=== PATIENT | female | born 1955 | race Caucasian/White ===

== ENCOUNTER 2018-07-25 16:08 | Emergency (ER) | payer OTHER ==
--- NOTE | 2018-07-25 16:49 | PDOC ---
History of Present Illness - General Stated Complaint: CHEST PAIN Time Seen by Provider: 07/25/18 16:49 History Source: Patient Exam Limitations: No Limitations - History of Present Illness Initial Comments: Pt is a 62 yo F, with PMH of cholecystectomy, post ERCP pancreatitis (March 2018), and asthma (controlled with symbicort), who is presenting with complaints of chest pressure that radiates to her back. Pt states the pressure sensation started shortly before presentation, and was constant, lasting for about 30 minutes. The pt was taking a nap for about 5 minutes, when the pain awoke her from sleep (non-exertional pain) and she felt her "heart racing". The pt took an aspirin, but the pain did not improve. It was not associated with diaphoresis, nausea, or vomiting. The pt traveled from [place] just 1 week ago, and had recent surgery and extended hospitalization in [place] (ERCP with post- ERCP pancreatitis 2/2 to CBD dilation, and cholecystectomy). Pt denies any fevers/chills, headache, vision changes, syncope, SOB, nausea/vomiting, abdominal pain, urinary symptoms, diarrhea/constipation, or leg swelling. Social: Pt smoked 2 ppd prior to her procedure in March. Denies any alcohol or drug use. Pt flew on a plane from [place] 1 week ago. Denies sick contacts. Surgical: ERCP, cholecystectomy. Family: no relevant history. 07/25/18 20:08 Past History - Travel Traveled outside of the country in the last 30 days: Yes If so, where?: [place] Close contact w/someone who was outside of country & ill: No - Past Medical History Allergies/Adverse Reactions: Allergies Allergy/AdvReac Type Severity Reaction Status Date / Time Penicillins Allergy Severe Difficulty Verified 07/25/18 17:38 Breathing Home Medications: Ambulatory Orders Budesonide/Formeterol Fumarate [SYMBICORT 160/4.5mcg -] 1 inh PO DAILY 07/25/18 Asthma: Yes Cardiac Disorders: No Hx Myocardial Infarction: No DVT: No GI Disorders: Yes HTN: No Hypercholesterolemia: No - Surgical History Abdominal Surgery: Yes (bebeto, ERCP) Cholecystectomy: Yes Review of Systems - Review of Systems Able to Perform ROS?: Yes Is the patient limited Urdu proficient: No Constitutional: Yes: Weight Stable. No: Chills, Diaphoresis, Fever, Loss of Appetite, Malaise, Weakness HEENTM: No: Blurred Vision, Double Vision, Nose Congestion, Throat Pain Respiratory: No: Cough, Orthopnea, Shortness of Breath, Wheezing Cardiac (ROS): Yes: Palpitations, Chest Tightness. No: Chest Pain, Edema, Irregular Heart Rate, Lightheadedness, Syncope ABD/GI: Yes: See HPI (Recent pancreatitis with "fluid in the abdomen and chest" , recent hospitalization, see HPI). No: Constipated, Diarrhea, Nausea, Poor Appetite, Poor Fluid Intake, Vomiting, Abdominal cramping : No: Burning, Dysuria, Frequency, Flank Pain, Pain Musculoskeletal: No: Back Pain, Joint Pain, Muscle Weakness Integumentary: No: Rash, Sweating Neurological: No: Headache, Numbness, Paresthesia, Weakness, Unsteady Gait, Ataxia, Dizziness Psychiatric: No: Sleep Pattern Change, Change in Appetite Endocrine: No: Increased Urine, Change in Weight Hematologic/Lymphatic: No: Anemia, Blood Clots, Easy Bleeding, Easy Bruising All Other Systems: Reviewed and Negative *Physical Exam - Vital Signs 07/25/18 19:51 Vital Signs Temp Pulse Resp BP Pulse Ox 97.9 F 83 18 132/68 100 07/25/18 16:50 07/25/18 16:50 07/25/18 16:50 07/25/18 16:50 07/25/18 16:50 - Physical Exam Comments: Vitals stable, pt afebrile, O2 100% on RA. Pt in NAD, normal body habitus. PE showed pt alert and oriented. librarian assistant generally intact, muscular strength and sensation intact. Oropharynx without erythema or exudates. No nasal congestion, hearing intact. Clear heart sounds, S1/S2, no JVD, b/l pedal edema, or heart murmur. Clear lung sounds, no respiratory distress, wheezes, crackles, accessory muscle use, or respiratory distress. No abdominal or CVA tenderness to palpation, no rebound, no guarding. Abdomen soft, non-distended, and with normoactive bowel sounds. Skin without jaundice or rash. 07/25/18 20:15 ED Treatment Course - LABORATORY CBC & Chemistry Diagram: 07/25/18 18:00 07/25/18 19:07 Medical Decision Making - Medical Decision Making Pt was seen at bedside, also will be seen by attending Dr. Nassef. Pt presenting with complaints of chest pressure that radiates to her back. Pt states the pressure sensation started shortly before presentation, and was constant, lasting for about 30 minutes. The pt was taking a nap for about 5 minutes, when the pain awoke her from sleep (non-exertional pain) and she felt her "heart racing". The pt took an aspirin, but the pain did not improve. It was not associated with diaphoresis, nausea, or vomiting. Pt denies any current symptoms at time of presentation. The pt traveled from [place] just 1 week ago, and had recent surgery and extended hospitalization in [place] (ERCP with post- ERCP pancreatitis 2/2 to CBD dilation, and cholecystectomy). Pt denies any fevers/chills, headache, vision changes, syncope, SOB, nausea/vomiting, abdominal pain, urinary symptoms, diarrhea/constipation, or leg swelling. Vitals stable, pt afebrile, O2 100% on RA. Pt in NAD, normal body habitus. PE showed pt alert and oriented. librarian assistant generally intact, muscular strength and sensation intact. Oropharynx without erythema or exudates. No nasal congestion, hearing intact. Clear heart sounds, S1/S2, no JVD, b/l pedal edema, or heart murmur. Clear lung sounds, no respiratory distress, wheezes, crackles, accessory muscle use, or respiratory distress. No abdominal or CVA tenderness to palpation, no rebound, no guarding. Abdomen soft, non-distended, and with normoactive bowel sounds. Skin without jaundice or rash. Considering PE vs dissection vs retained stone in CBD vs ACS vs pancreatitis. Due to recent travel, recent surgery, and chest pressure, pt is considered high risk and we will progress to CTA instead of D-dimer to r/o PE. Ordered work-up including CBC, CMP, PT/INR, cardiac profile, type & screen, ECG , UA, urine culture, and chest CTA. Attempted to provide tylenol for pain - pt refused as she denies active chest pain at this time. Will continue to reassess pt and monitor for symptomatic improvement. ECG: HR 86, NSR, intervals WNL. No TWIs or significant ST segment changes. 07/25/18 18:42 Lab hemolyzed all samples. Will need to be re-drawn to send to lab. 07/25/18 18:54 Labs were re-sent. Pending labs and CTA. Pt signed out to next resident team. Explained presentation, ED course, any pending results, and needed interventions to resident Dr. Allen. 07/25/18 19:47 *DC/Admit/Observation/Transfer Diagnosis at time of Disposition: Chest pain Qualifiers: Chest pain type: unspecified Qualified Code(s): R07.9 - Chest pain, unspecified - Referrals Referrals: Cecil Mejia MD [Staff Physician] - Evangelina Rutherford MD [Primary Care Provider] - - Patient Instructions Printed Discharge Instructions: DI for Atypical Chest Pain, DI for Chest Pain Additional Instructions: you were seen for your chest pain. both blood values for your heart were negative for heart attack. please follow up with your primary medical doctor within 2-3 days after discharge for follow up care and management. Follow up with the cardiology referred to you, Dr. Mejia, within 3 days after discharge for follow up care and management. Please return to the emergency department if you have worsening symptoms or new concerning symptoms such as new quality chest pain, shortness of breath, and nausea and vomiting with chest pain. please follow up with Dr. Rutherford concerning the nodules seen on the chest CT. these nodules need to be reassessed in [address] thank you. thank you. - Post Discharge Activity
[2018-07-25] MEDS ORDERED: ACETAMINOPHEN 1000 MG/100 ML VIAL (NON FORMULARY) IVPB ONE (17:33)
[2018-07-25 17:37] VITALS: BMI 28.3
[2018-07-25 18:41] LABS: BASO % 0.9 % (0-2.0); EOS % 2.2 % (0-4.5); HEMATOCRIT 38.7 % (32.4-45.2); HEMOGLOBIN 13.6 GM/dL (10.7-15.3); LYMPH % 40.8 % (8-40); MCH 32.4 pg (25.7-33.7); MCHC 35.2 g/dl (32.0-36.0); MEAN CELL VOLUME 91.9 fl (80-96); MEAN PLT VOLUME 9.6 fl (7.5-11.1); MONO % 14.9 % (3.8-10.2); NEUT % 41.2 % (42.8-82.8); PLATELET COUNT 139 K/MM3 (134-434); RBC 4.21 M/mm3 (3.60-5.2); RDW 15.6 % (11.6-15.6); WHITE BLOOD COUNT 5.3 K/mm3 (4.0-10.0)
[2018-07-25 18:59] LABS: URINE APPEARANCE CLEAR; URINE BILIRUBIN NEGATIVE (<2.0 mg/dL); URINE COLOR LTYELLOW; URINE GLUCOSE (UA) NEGATIVE (NEGATIVE); URINE KETONE NEGATIVE (NEGATIVE); URINE LEUK ESTERASE NEGATIVE (NEGATIVE); URINE NITRITE NEGATIVE (NEGATIVE); URINE PROTEIN NEGATIVE (NEGATIVE); URINE UROBILINOGEN NEGATIVE mg/dL (0.2-1.0)
--- NOTE | 2018-07-25 19:04 | PDOC ---
Attending Attestation - Resident Resident Name: Emily Alcala - ED Attending Attestation I have performed the following: I have examined & evaluated the patient, The case was reviewed & discussed with the resident, I agree w/resident's findings & plan, Exceptions are as noted - HPI HPI: 07/25/18 19:52 The patient is a 62 year old female, with a significant past medical history of Asthma (well controlled), and Pneumonia who presents to the emergency department today complaining of chest pain The patient reports going to [place] and having her gallbladder removed (Mar 2018) and returning from [place] 1 week ago. Patient notes midsternal chest pressure radiating to the back and her heart was going fast. The patient reports taking aspirin and used her rescue inhaler, with minimal relief. Patient reports no active pain right now. The patient denies shortness of breath, headache and dizziness. The patient denies fever, chills, nausea, vomit, diarrhea and constipation. The patient denies dysuria, frequency, urgency and hematuria. Allergies: Penicillins Past surgical history: cholecystectomy (mar 2018) Social history: No reported PCP: Dr. Rutherford - Physicial Exam PE: 07/25/18 19:54 agree with resident exam - Medical Decision Making 07/25/18 19:54 62yo F hx asthma presents to the ED CP radiating to the back. Vitals and exam wnl. EKG non ischemic. DDx includes but not limited to ACS vs PE vs dissection vs PNA vs GERD. Pt is asymptomatic now. Plan -labs -CTA chest -reassess 07/25/18 22:12 Labs wnl CTA done, read pending Rpt EKG stable compared to first 2nd trop pending Pt with no CP during entire time in ED Pt well appearing 07/25/18 23:26 CTA with no PE +pulm nodules noted, discussed with pt that she needs a rpt CT chest as an outpt for resolution, discussed that they could be malignant necessitating follow up Pt and daughter express understanding No CP while here, feels well, requests DC home. Pt has outpt f/u I discussed the physical exam findings, ancillary test results and final diagnoses with the patient. I answered all of the patient's questions. The patient was satisfied with the care received and felt comfortable with the discharge plan and treatment plan. The patient will call their primary care physician within 24 hours to arrange follow-up and will return to the Emergency Department with any new, persistent or worsening symptoms. Heart Score/ECG Review #1 07/25/18 22:10 Twelve-lead EKG was performed and reviewed by me. Normal sinus rhythm, rate 86. Normal axis and intervals. No ST elevations. #2 07/25/18 22:11 Twelve-lead EKG was performed and reviewed by me. Normal sinus rhythm, rate 73. Normal axis and intervals. No ST elevations.
--- NOTE | 2018-07-25 19:31 | PDOC ---
*Physical Exam - Vital Signs Last Vital Signs Temp Pulse Resp BP Pulse Ox 97.9 F 83 18 132/68 100 07/25/18 16:50 07/25/18 16:50 07/25/18 16:50 07/25/18 16:50 07/25/18 16:50 - Physical Exam Comments: 07/25/18 19:31 Received sign out from Dr. Alcala ED Treatment Course - LABORATORY CBC & Chemistry Diagram: 07/25/18 18:00 07/25/18 19:07 - ADDITIONAL ORDERS Additional order review: Laboratory Results 07/25/18 07/25/18 07/25/18 18:13 18:00 18:00 PT with INR Cancelled INR Cancelled Sodium Cancelled Potassium Cancelled Chloride Cancelled Carbon Dioxide Cancelled Anion Gap Cancelled BUN Cancelled Creatinine Cancelled Creat Clearance w eGFR Cancelled Random Glucose Cancelled Calcium Cancelled Magnesium Cancelled Total Bilirubin Cancelled AST Cancelled ALT Cancelled Alkaline Phosphatase Cancelled Creatine Kinase Cancelled Troponin I Cancelled Total Protein Cancelled Albumin Cancelled Lipase Cancelled Urine Color Ltyellow Urine Appearance Clear Urine pH 7.0 Ur Specific [place] 1.016 Urine Protein Negative Urine Glucose (UA) Negative Urine Ketones Negative Urine Blood Negative Urine Nitrite Negative Urine Bilirubin Negative Urine Urobilinogen Negative Ur Leukocyte Esterase Negative Blood Type Antibody Screen 07/25/18 18:00 PT with INR INR Sodium Potassium Chloride Carbon Dioxide Anion Gap BUN Creatinine Creat Clearance w eGFR Random Glucose Calcium Magnesium Total Bilirubin AST ALT Alkaline Phosphatase Creatine Kinase Troponin I Total Protein Albumin Lipase Urine Color Urine Appearance Urine pH Ur Specific [place] Urine Protein Urine Glucose (UA) Urine Ketones Urine Blood Urine Nitrite Urine Bilirubin Urine Urobilinogen Ur Leukocyte Esterase Blood Type Cancelled Antibody Screen Cancelled 07/25/18 18:00 RBC 4.21 MCV 91.9 MCHC 35.2 RDW 15.6 MPV 9.6 Neutrophils % 41.2 L Lymphocytes % 40.8 H Monocytes % 14.9 H Eosinophils % 2.2 Basophils % 0.9 - Medications Given in the ED: ED Medications Discontinued Medications Generic Name Dose Route Start Last Admin Trade Name Freq PRN Reason Stop Dose Admin Acetaminophen 1,000 mg 07/25/18 17:33 07/25/18 18:18 Ofirmev Injection - IVPB 07/25/18 17:34 Not Given ONCE ONE Medical Decision Making - Medical Decision Making 07/27/18 15:10 Patient was signed out to me by Dr. Alcala with pending CTA of the chest. patient was evaluated for chest pain. CTA of the chest shows no PE, dissection, or aneurysm. Patient has a mild focal pleural thickening within the lingula mildly increased in comparison to an abdomen CT study of 01/04/2018. In addition, there is several small right middle lobe, left upper lobe, and left lower lobe pulmonary nodules that are seen which are probably benign in nature per the report. These results were verbalized to the patient as well as a copy of the results given to the patient. the patient was well at the time of discharge and requested to be discharged. i instructed the patient to follow up with Dr. Rutherford for follow up on the CT findings and referred her to Dr. Mejia for cardiology follow up to be done within 72 hours after discharge. I discussed the physical exam findings, ancillary test results, and final diagnoses with the patient. I answered all of the patients questions to their satisfaction. The patient was satisfied with the care received and felt comfortable with the discussed discharge and treatment plan and accepted it. They agreed to follow up with their primary medical physical physician within 24 -72 hours after discharge for follow up care and management Dispo: Discharge *DC/Admit/Observation/Transfer Diagnosis at time of Disposition: Chest pain Qualifiers: Chest pain type: unspecified Qualified Code(s): R07.9 - Chest pain, unspecified - Discharge Dispostion Decision to Admit order: No - Referrals Referrals: Evangelina Rutherford MD [Primary Care Provider] - Cecil Mejia MD [Staff Physician] - - Patient Instructions Printed Discharge Instructions: DI for Atypical Chest Pain, DI for Chest Pain Additional Instructions: you were seen for your chest pain. both blood values for your heart were negative for heart attack. please follow up with your primary medical doctor within 2-3 days after discharge for follow up care and management. Follow up with the cardiology referred to you, Dr. Mejia, within 3 days after discharge for follow up care and management. Please return to the emergency department if you have worsening symptoms or new concerning symptoms such as new quality chest pain, shortness of breath, and nausea and vomiting with chest pain. please follow up with Dr. Rutherford concerning the nodules seen on the chest CT. these nodules need to be reassessed in [address] thank you. thank you. - Post Discharge Activity
[2018-07-25 19:56] LABS: INR 0.94 (0.83-1.09); PROTHROMBIN TIME (PATIENT) 11.1 SEC (9.7-13.0)
[2018-07-25 20:08] LABS: ALBUMIN 3.7 g/dl (3.4-5.0); ALK PHOS 58 U/L (45-117); ANION GAP 8 MMOL/L (8-16); BILIRUBIN,TOTAL 0.2 mg/dL (0.2-1); BLOOD UREA NITROGEN 25 mg/dL (7-18); CALCIUM 8.7 mg/dL (8.5-10.1); CHLORIDE 107 mmol/L (98-107); CO2 26 mmol/L (21-32); CREATININE 0.6 mg/dL (0.55-1.3); GLUCOSE,RANDOM 97 mg/dL (74-106); LIPASE 157 U/L (73-393); MAGNESIUM 1.9 mg/dL (1.8-2.4); PHOSPHOROUS 4.6 mg/dL (2.5-4.9); POTASSIUM 4.5 mmol/L (3.5-5.1); SGOT/AST 16 U/L (15-37); SGPT/ALT 23 U/L (13-61); SODIUM 142 mmol/L (136-145); TOT PROT 6.7 g/dl (6.4-8.2)
[2018-07-25 23:28] VITALS: BP 130/70; PULSE 74; TEMP 98.6
--- NOTE | 2018-07-26 13:11 | EKG ---
Test Reason : Blood Pressure : / mmHG Vent. Rate : 073 BPM Atrial Rate : 073 BPM P-R Int : 146 ms QRS Dur : 072 ms QT Int : 416 ms P-R-T Axes : 044 -11 006 degrees QTc Int : 458 ms NORMAL SINUS RHYTHM CANNOT RULE OUT ANTERIOR INFARCT , AGE UNDETERMINED ABNORMAL ECG NO PREVIOUS ECGS AVAILABLE Confirmed by WEST LEVINE MD ([id number]) on 07/26/2018 1:10:45 PM Referred By: Confirmed By:WEST LEVINE MD
--- NOTE | 2018-07-26 13:14 | EKG ---
Test Reason : Blood Pressure : / mmHG Vent. Rate : 086 BPM Atrial Rate : 086 BPM P-R Int : 136 ms QRS Dur : 064 ms QT Int : 368 ms P-R-T Axes : 043 -06 027 degrees QTc Int : 440 ms NORMAL SINUS RHYTHM POSSIBLE LEFT ATRIAL ENLARGEMENT NO PREVIOUS ECGS AVAILABLE Confirmed by WEST LEVINE MD ([id number]) on 07/26/2018 1:14:33 PM Referred By: Confirmed By:WEST LEVINE MD
== END 2018-07-25 23:44 ==
LOC: JER 16:08
PROC: 3E033NZ Introduction of Analgesics, Hypnotics, Sedatives into Peripheral Vein, Percutaneous Approach (ICD-10-PCS; principal; 2018-07-25)
DX: R07.9 Chest pain, unspecified (principal); Z87.19 Personal history of other diseases of the digestive system; J45.909 Unspecified asthma, uncomplicated; Z90.49 Acquired absence of other specified parts of digestive tract
CPT/HCPCS: 36415; 71275-TC; 80053; 81003; 82550; 83690; 83735; 84100; 84484; 85025; 85610; 86850; 86900; 86901; 87086; 93005; 93010; 96374; 99285-25

== ENCOUNTER 2024-11-14 13:51 | Emergency (ER) | payer OTHER ==
[2024-11-14 14:20] VITALS: RESP 18; BMI 28.9
[2024-11-14] MEDS ORDERED: ACETAMINOPHEN 325 MG TABLET (FP) ONE (14:59)
[2024-11-14] MEDS: ACETAMINOPHEN 325 MG TABLET (FP) PO ONE (15:01)
[2024-11-14 15:39] LABS: ABSOLUTE IMMATURE GRANULOCYTES 0.04 x10^3/uL (0.0-0.031); BASOPHILS # 0.06 x10^3/uL (0.01-0.08); EOSINOPHIL % 0.2 % (0.7-5.8); EOSINOPHILS # 0.02 x10^3/uL (0.04-0.36); HEMATOCRIT 45.1 % (34.1-44.9); HEMOGLOBIN 15.3 g/dL (11.2-15.7); MCHC 33.9 g/dl (32.2-35.5); MEAN CELL VOLUME 92.2 fl (79.4-94.8); MONOCYTE # 0.65 x10^3/uL (0.24-0.86); MONOCYTE % 7.5 % (4.7-12.5); PLATELET COUNT 158 x10^3/uL (182-369)
[2024-11-14 16:12] LABS: ALBUMIN 4.3 g/dl (3.4-5.0); BLOOD UREA NITROGEN 18.3 mg/dL (7-18); CALCIUM 9.7 mg/dL (8.5-10.1)
[2024-11-14 16:15] LABS: CREATININE 0.6 mg/dL (0.55-1.3)
[2024-11-14 16:17] LABS: BILIRUBIN,TOTAL 0.6 mg/dL (0.2-1); TOT PROT 6.8 g/dl (6.4-8.2)
[2024-11-14 16:41] VITALS: BP 116/88; PULSE 88
== END 2024-11-14 16:44 | disposition home or self-care (01) ==
LOC: JER 13:51
DX: I10 Essential (primary) hypertension (principal); R20.0 Anesthesia of skin; R20.2 Paresthesia of skin; R51.9 Headache, unspecified
CPT/HCPCS: 36415; 80053; 84484; 85025; 93005; 93010; 99284-25